=== PATIENT | male | born 2000 | race African-American/Black ===

== ENCOUNTER 2022-06-30 07:51 | Inpatient (IN) ==
[2022-06-30] MEDS ORDERED: Ondansetron 4 MG/2 ML VIAL IVP ONE ×2 (08:56→11:48)
[2022-06-30] MEDS ORDERED: 0.9 % Sodium Chloride 1,000 ML IVC ONE ×3 (08:56→12:44)
[2022-06-30 09:19] LABS: Basophils # 0.1 K/mcL (0.0-0.2); Basophils % 0.4 %; Eosinophils % 0.2 %; Hematocrit 45.3 % (37.5-50.1); Hemoglobin 15.9 g/dL (12.9-16.9); Immature Granulocytes % 0.9 % (0-4); Lymphocytes # 0.6 K/mcL (0.6-4.6); Lymphocytes % 4.3 %; Mean Corpuscular HGB Conc 35.1 g/dL (31.6-35.5); Mean Corpuscular Hemoglobin 30.3 pg (28.0-33.3); Mean Corpuscular Volume 86.5 fL (83.0-100.0); Mean Platelet Volume 11.2 fL (9.4-12.4); Monocytes # 0.6 K/mcL (0.0-1.3); Monocytes % 4.3 %; Neutrophils # 12.3 K/mcL (1.6-8.9); Platelet Count 167 K/mcL (140-400); Red Blood Count 5.24 M/mcL (4.19-5.50); Red Cell Distribution Width 13.2 % (11.5-14.5); Segmented Neutrophils % 89.9 %; White Blood Count 13.7 K/mcL (4.3-11.1)
[2022-06-30 09:39] LABS: Albumin 4.3 g/dL (3.5-5.7); Bilirubin,Total 0.9 mg/dL (0.3-1.0); Calcium 9.8 mg/dL (8.6-10.3); Globulin 4.2 g/dL (2.4-3.5); Potassium 3.5 mEq/L (3.5-5.1); Total Protein 8.5 g/dL (6.4-8.9)
[2022-06-30 09:41] LABS: Platelet Estimate Normal (Normal)
[2022-06-30 09:43] LABS: Troponin I 0.33 ng/mL (< 0.04)
[2022-06-30] MEDS ORDERED: Iopamidol - 370 500 ML MLS IVP ONE ×2 (09:48→10:40)
[2022-06-30 10:15] LABS: Bacteria,Urine Few per hpf (None-Few); Bilirubin,Urine Negative (Negative); Blood,Urine Moderate (Negative); Clarity,Urine Clear (Clear); Color,Urine Yellow (Yellow); Glucose,Urine (UA) Normal (Normal); Ketones,Urine 40 mg/dL (Negative); Leukocyte Esterase,Urine Negative (Negative); Mucus,Urine Few per lpf (None-Few); Nitrite,Urine Negative (Negative); Protein,Urine 100 mg/dL (Neg-Trace); Specific Gravity,Urine 1.017 (1.010-1.025); Squamous Epithelial Cell,Urine Few per hpf (None-Few)
[2022-06-30 10:32] LABS: Thyroid Stimulating Hormone 0.99 mcIU/mL (0.340-5.600)
[2022-06-30] MEDS ORDERED: Acetaminophen 325 MG TABLET PO ONE (13:07)
[2022-06-30] MEDS ORDERED: Aspirin 325 MG TABLET PO ONE (13:17)
[2022-06-30] MEDS ORDERED: *HR* Metoprolol 5 MG/5 ML VIAL IVP ONE (13:22)
[2022-06-30] MEDS ORDERED: cefTRIAXone 1,000 MG in Water for inj. (sterile) 10 ML IVP ONE (13:44)
[2022-06-30] MEDS ORDERED: *HR* Heparin 5,000 UNIT/ML VIAL IVP ONE (13:55)
[2022-06-30] MEDS ORDERED: *HR* Heparin 5,000 UNIT/ML VIAL IVP PRN (13:55)
[2022-06-30 14:46] LABS: Heparin anti-factor XA UFH < 0.04 IU/mL (0.30-0.70); INR 1.4; Prothrombin Time 15.9 Seconds (9.4-12.1)
[2022-06-30] MEDS ORDERED: *HR* Midazolam HCl 2 MG/2 ML VIAL ONE (14:52)
[2022-06-30] MEDS ORDERED: *HR* FentaNYL (PF) 100 MCG/2 ML VIAL ONE (14:52)
[2022-06-30] MEDS ORDERED: Nitroglycerin 1,000 MCG/5 ML VIAL IV ONE (14:53)
[2022-06-30] MEDS ORDERED: *HR* Heparin 10,000 UNIT/10 ML VIAL ONE (14:53)
[2022-06-30] MEDS ORDERED: Heparin 1,000 UNITS/500 mL 0 ML ONE (14:53)
[2022-06-30] MEDS ORDERED: Iopamidol - 370 200 ML INFUS..BTL ONE (14:53)
[2022-06-30] MEDS ORDERED: Acetaminophen 325 MG TABLET PO STA (14:59)
[2022-06-30] MEDS: Heparin 25,000UNIT/250ML 1/2NS 25,000 UNIT/250 ML IV.SOLN IVC SCH (15:04)
[2022-06-30] MEDS ORDERED: Acetaminophen 325 MG TABLET PO PRN (15:48)
[2022-06-30] MEDS ORDERED: Naloxone 0.4 MG/ML INJ IVP PRN (15:48)
[2022-06-30 16:14] LABS: Adenovirus Not Detected (Not Detect); Bordetella Pertussis Not Detected (Not Detect); Chlamydophila pneumoniae Not Detected (Not Detect); Coronavirus 229E Not Detected (Not Detect); Coronavirus HKU1 Not Detected (Not Detect); Coronavirus NL63 Not Detected (Not Detect); Coronavirus OC43 Not Detected (Not Detect); Human Metapneumovirus Not Detected (Not Detect); Human Rhinovirus/Enterovirus DETECTED (Not Detect); Influenza A Subtype 2009 H1 Not Detected (Not Detect); Influenza B Not Detected (Not Detect); Mycoplasma pneumoniae Not Detected (Not Detect); Parainfluenza Virus 1 Not Detected (Not Detect); Parainfluenza Virus 2 Not Detected (Not Detect); Parainfluenza Virus 3 Not Detected (Not Detect); Parainfluenza Virus 4 Not Detected (Not Detect); Respiratory Syncytial Virus Not Detected (Not Detect)
[2022-06-30 16:19] LABS: SARS-CoV-2 DETECTED (Not Detect)
[2022-06-30] MEDS ORDERED: *HR* Dextrose 50 % in Water (Syg) 50 ML SYRINGE IVP PRN (16:31)
[2022-06-30] MEDS ORDERED: D5% in Water 1,000 ML IVC PRN (16:31)
[2022-06-30] MEDS ORDERED: Dextrose Gel 15 GM/37.5 ML TUBE PO PRN ×2 (16:31)
[2022-06-30] MEDS: *HR* Metoprolol 5 MG/5 ML VIAL IVP SCH ×2 (17:01→21:19)
[2022-06-30 18:25] LABS: C-Reactive Protein > 300 mg/L (Less than 10); Troponin I 1.01 ng/mL (< 0.04)
[2022-06-30] MEDS: Ondansetron 4 MG/2 ML VIAL IVP PRN (18:26)
[2022-06-30] MEDS: Pantoprazole 40 MG VIAL IVP SCH (18:27)
[2022-06-30] MEDS: Acetaminophen IV 1,000 MG/100 ML BAG IVPB SCH (19:42)
[2022-06-30] MEDS: levoFLOXacin 750 MG/150 ML 750 MG/150 ML BAG IVPB SCH (20:27)
[2022-07-01 03:35] VITALS: O2SAT 98
[2022-07-01] MEDS: Acetaminophen IV 1,000 MG/100 ML BAG IVPB SCH ×3 (03:38→20:28)
[2022-07-01] MEDS: *HR* Metoprolol 5 MG/5 ML VIAL IVP SCH ×3 (03:38→17:45)
[2022-07-01] MEDS ORDERED: Levalbuterol Neb 1.25 MG/3 ML IH ONE (03:57)
[2022-07-01 06:11] LABS: Basophils % 0.2 %; Hematocrit 39.1 % (37.5-50.1); Immature Granulocytes % 1.5 % (0-4); Lymphocytes # 1.6 K/mcL (0.6-4.6); Lymphocytes % 9.8 %; Mean Corpuscular HGB Conc 34.8 g/dL (31.6-35.5); Mean Corpuscular Hemoglobin 30.2 pg (28.0-33.3); Mean Corpuscular Volume 86.9 fL (83.0-100.0); Mean Platelet Volume 11.8 fL (9.4-12.4); Monocytes # 0.8 K/mcL (0.0-1.3); Monocytes % 4.8 %; Neutrophils # 13.7 K/mcL (1.6-8.9); Platelet Count 159 K/mcL (140-400); Red Cell Distribution Width 13.5 % (11.5-14.5); Segmented Neutrophils % 83.7 %; White Blood Count 16.4 K/mcL (4.3-11.1)
[2022-07-01 06:17] LABS: Hemoglobin 13.6 g/dL (12.9-16.9)
[2022-07-01 06:25] LABS: Heparin anti-factor XA UFH 0.29 IU/mL (0.30-0.70)
[2022-07-01 06:30] LABS: BUN/Creatinine Ratio 14 (6-26); Blood Urea Nitrogen 23 mg/dL (6-20); Calcium 8.8 mg/dL (8.6-10.3); Carbon Dioxide 25 mEq/L (23-29); Chloride 103 mEq/L (98-107); Glucose 132 mg/dL (70-105); Magnesium 2.3 mg/dL (1.6-2.6); Osmolality,Calculated 292 (280-300); Potassium 3.5 mEq/L (3.5-5.1); Sodium 138 mEq/L (136-145)
[2022-07-01 06:33] LABS: Platelet Estimate Normal (Normal); Reactive Lymphocytes Present (Not Present)
[2022-07-01] MEDS: *HR* Heparin 5,000 UNIT/ML VIAL IVP PRN ×3 (06:33→20:42)
[2022-07-01 06:38] LABS: Troponin I 0.87 ng/mL (< 0.04)
[2022-07-01 09:49] LABS: C-Reactive Protein > 300 mg/L (Less than 10)
[2022-07-01] MEDS: Metoprolol XL (24 HR) Succ 25 MG TAB.ER.24H PO SCH (10:21)
[2022-07-01] MEDS: Pantoprazole 40 MG VIAL IVP SCH (10:22)
[2022-07-01] MEDS: Aspirin 81 MG TAB.CHEW PO SCH (10:22)
[2022-07-01] MEDS: Heparin 25,000UNIT/250ML 1/2NS 25,000 UNIT/250 ML IV.SOLN IVC SCH (10:23)
[2022-07-01] MEDS ORDERED: carvediloL 6.25 MG TABLET PO SCH (17:00)
[2022-07-01] MEDS ORDERED: *HR* Metoprolol 5 MG/5 ML VIAL IVP PRN (17:44)
[2022-07-01] MEDS: levoFLOXacin 750 MG/150 ML 750 MG/150 ML BAG IVPB SCH (20:41)
[2022-07-02] MEDS: Heparin 25,000UNIT/250ML 1/2NS 25,000 UNIT/250 ML IV.SOLN IVC SCH ×2 (00:15→11:09)
[2022-07-02] MEDS: Acetaminophen IV 1,000 MG/100 ML BAG IVPB SCH ×2 (03:17→08:02)
[2022-07-02] MEDS: Ondansetron 4 MG/2 ML VIAL IVP PRN (03:18)
[2022-07-02 03:48] LABS: Basophils % 0.2 %; Eosinophils % 0.1 %; Hematocrit 37.9 % (37.5-50.1); Hemoglobin 13.1 g/dL (12.9-16.9); Immature Granulocytes % 1.3 % (0-4); Lymphocytes # 2.2 K/mcL (0.6-4.6); Lymphocytes % 12.9 %; Mean Corpuscular HGB Conc 34.6 g/dL (31.6-35.5); Mean Corpuscular Volume 86.7 fL (83.0-100.0); Monocytes # 0.8 K/mcL (0.0-1.3); Monocytes % 4.6 %; Platelet Count 193 K/mcL (140-400); Red Blood Count 4.37 M/mcL (4.19-5.50); Red Cell Distribution Width 13.6 % (11.5-14.5); Segmented Neutrophils % 80.9 %; White Blood Count 17.3 K/mcL (4.3-11.1)
[2022-07-02 03:58] LABS: BUN/Creatinine Ratio 19 (6-26); Blood Urea Nitrogen 26 mg/dL (6-20); C-Reactive Protein > 300 mg/L (Less than 10); Calcium 8.9 mg/dL (8.6-10.3); Carbon Dioxide 26 mEq/L (23-29); Chloride 103 mEq/L (98-107); Glucose 118 mg/dL (70-105); Osmolality,Calculated 294 (280-300); Potassium 3.4 mEq/L (3.5-5.1); Sodium 139 mEq/L (136-145)
[2022-07-02 04:04] LABS: Platelet Estimate Normal (Normal)
[2022-07-02] MEDS: *HR* Heparin 5,000 UNIT/ML VIAL IVP PRN (04:08)
[2022-07-02 04:35] VITALS: PULSE 112; TEMP 99.2
[2022-07-02 04:41] VITALS: BP 93/59
[2022-07-02] MEDS: Aspirin 81 MG TAB.CHEW PO SCH (08:02)
[2022-07-02] MEDS: Pantoprazole 40 MG VIAL IVP SCH (08:03)
[2022-07-02] MEDS: Metoprolol XL (24 HR) Succ 25 MG TAB.ER.24H PO SCH (08:06)
== END 2022-07-02 15:12 | disposition home or self-care (01) | DRG 720 ==
LOC: EMEROOARM 07:51 → 3NENU 07:51 → SUATTDRO 15:28 → OBSVTOIN 15:28 → 3NENU 16:21
PROVIDERS: ADMIT Pharmacist; ATTEND Pharmacist